=== PATIENT | female | born 2000 | race Caucasian/White ===

== ENCOUNTER 2023-07-07 12:51 | Emergency (ER) | payer BC, OTHER ==
[~2023-07-07] VITALS: Ht 157.5 cm; Wt 62.6 kg
[2023-07-07] MEDS ORDERED: MILI1TAB PO (13:16)
[2023-07-07 14:31] VITALS: BP 143/82; TEMP 98.7; O2SAT 97
== END 2023-07-07 14:33 | disposition home or self-care (01) ==
LOC: M ED 12:51
DX: K64.4 Residual hemorrhoidal skin tags (principal); F17.290 Nicotine dependence, other tobacco product, uncomplicated

== ENCOUNTER → 2023-10-26 | Outpatient (REF) | payer OTHER ==
[~2023-10-26] MED LIST: AMOX500C PO; MILI1TAB PO
== END ==
LOC: M LAB REF 11:53
PROVIDERS: ATTEND Physician Assistant Medical
DX: J02.9 Acute pharyngitis, unspecified (principal)

== ENCOUNTER 2023-10-27 11:32 | Emergency (ER) | payer OTHER ==
[~2023-10-27] VITALS: Ht 157.5 cm; Wt 67.4 kg
[~2023-10-27 11:32] MED LIST changes: -AMOX500C PO
[2023-10-27 13:30] LABS: RSV AMPLIFICATION NEGATIVE (NEGATIVE)
[2023-10-27] MEDS ORDERED: AMOX500C PO (13:58)
[2023-10-27 14:05] VITALS: BP 114/79; TEMP 98.7; O2SAT 99
== END 2023-10-27 14:08 | disposition home or self-care (01) ==
LOC: M ED 11:32
DX: J03.90 Acute tonsillitis, unspecified (principal); Z79.2 Long term (current) use of antibiotics; Z79.899 Other long term (current) drug therapy